=== PATIENT | female | born 1980 | race Two or more races ===

== ENCOUNTER 2020-04-22 18:26 | Observation (INO) | payer OTHER | END 2020-04-22 21:02 | disposition home or self-care (01) | LOC: LDRP 18:26 | PROVIDERS: ADMIT Obstetrics & Gynecology; ATTEND Obstetrics & Gynecology | DX: O99.612 Diseases of the digestive system complicating pregnancy, second trimester (principal); K59.00 Constipation, unspecified; Z3A.24 24 weeks gestation of pregnancy | CPT/HCPCS: 59025; 81002; G0378 ==